=== PATIENT | female | born 1960 | race Caucasian/White ===

== ENCOUNTER 2017-04-08 09:44 | Emergency (ER) | payer OTHER ==
[~2017-04-08] VITALS: Ht 134.6 cm; Wt 82.7 kg
[~2017-04-08 09:44] MED LIST: ONDA4TAB35 PO
[2017-04-08 09:51] VITALS: Ht 134.6 cm; Wt 82.7 kg
[2017-04-08] MEDS ORDERED: ONDANSETRON 4 MG INJ IV STA (10:01)
[2017-04-08] MEDS ORDERED: SOD CHLORIDE 0.9% 1,000 ML IV STA (10:01)
[2017-04-08 10:25] LABS: ADD SCAN DIFF NO
[2017-04-08 10:29] LABS: ABNORMAL IP MESSAGE 1; BASOPHILS % 0.1 % (0.0-2.0); EOSINOPHILS # 0.1 10^3/ul (0.0-0.5); EOSINOPHILS % 0.9 % (0.0-7.0); HEMATOCRIT 42.3 % (37.0-47.0); HEMOGLOBIN 13.9 g/dl (12.0-16.0); LYMPHOCYTES # 0.6 10^3/ul (0.8-2.9); LYMPHOCYTES % 8.6 % (15.0-51.0); MEAN CORPUSCULAR HEMOGLOBIN 29.8 pg (29.0-33.0); MEAN CORPUSCULAR HGB CONC 32.9 g/dl (32.0-37.0); MEAN CORPUSCULAR VOLUME 90.6 fl (82.0-101.0); MEAN PLATELET VOLUME 9.3 fl (7.4-10.4); MONOCYTE # 0.3 10^3/ul (0.3-0.9); MONOCYTES % 4.1 % (0.0-11.0); NEUTROPHIL # 5.8 10^3/ul (1.6-7.5); PLATELET COUNT 264 10^3/UL (140-415); RED BLOOD COUNT 4.67 10^6/ul (4.20-5.40); RED CELL DISTRIBUTION WIDTH 12.7 % (11.5-14.5); WHITE BLOOD COUNT 6.8 10^3/ul (4.8-10.8)
[2017-04-08 10:38] LABS: ADD UMIC NO; URINE BILIRUBIN (Dip) NEGATIVE (NEGATIVE); URINE BLOOD (Dip) NEGATIVE (NEGATIVE); URINE COLOR LT. YELLOW (YELLOW); URINE GLUCOSE (Dip) NEGATIVE (NEGATIVE); URINE KETONES (Dip) TRACE (NEGATIVE); URINE LEUKOCYTE ESTERASE (Dip) NEGATIVE (NEGATIVE); URINE NITRITE (Dip) NEGATIVE (NEGATIVE); URINE TOTAL PROTEIN (Dip) NEGATIVE (NEGATIVE); URINE UROBILINOGEN (Dip) 0.2 E.U./dL (0.1-1.0)
[2017-04-08] MEDS ORDERED: BENA20TA48 PO (10:44)
[2017-04-08] MEDS ORDERED: DIVA500T7 PO (10:45)
[2017-04-08 10:47] VITALS: BP 118/71; PULSE 78; RESP 18
[2017-04-08] MEDS ORDERED: BUSP10TA2 PO (10:47)
[2017-04-08] MEDS ORDERED: SIMV20TA PO (10:47)
[2017-04-08] MEDS ORDERED: GLIP-95 PO (10:47)
[2017-04-08 10:48] LABS: ALBUMIN/GLOBULIN RATIO 1.25; BILIRUBIN,INDIRECT 0.8 mg/dl (0-1.1); BILIRUBIN,TOTAL 0.8 mg/dl (0.2-1.3); CALCIUM 8.6 mg/dl (8.4-10.2); CREATININE 0.64 mg/dl (0.44-1.00); TOTAL PROTEIN 7.2 g/dl (6.1-8.1)
[2017-04-08] MEDS ORDERED: MTF1000T PO (10:54)
[2017-04-08] MEDS ORDERED: PIOG30TA2 PO (10:55)
[2017-04-08] MEDS ORDERED: ONDA4TAB14 PO (11:01)
--- NOTE | 2017-04-08 13:51 | ERD ---
ER Documentation Chief Complaint Date/Time DATE: 04/08/17 TIME: 13:49 Chief Complaint N/V/D SINCE YESTERDAY MORNING. PT STARTED NEW BIPOLAR MEDICATION HPI Patient is a 57-year-old female with bipolar disorder and diabetes who presents with vomiting and diarrhea. She feels like her muscles are tight. The symptoms started at 9 AM yesterday morning. The patient said that she started a new bipolar medicine last week but she does not know the name of the medicine. She denies fevers. She has had no treatment as of yet. Upon review of old medical records this is the patient's third visit to the ER since 2012. ROS All systems reviewed and are negative except as per history of present illness. Medications Home Meds Active Scripts Ondansetron (Ondansetron Odt) 4 Mg Tab.rapdis, 4 MG PO Q6H Y for NAUSEA AND/OR VOMITING, #10 TAB Prov:TADEO JEAN MD 04/08/17 Reported Medications Pioglitazone Hcl* (Actos*) 30 Mg Tablet, 30 MG PO DAILY, #30 TAB 04/08/17 Metformin* (Glucophage*) 1,000 Mg Tablet, 1000 MG PO BID, #60 TAB 04/08/17 Buspirone Hcl* (Buspirone Hcl*) 10 Mg Tab, 10 MG PO BID, TAB 04/08/17 Glipizide* (Glipizide*) 10 Mg Tablet, 10 MG PO BID, TAB 04/08/17 Simvastatin* (Zocor*) 20 Mg Tablet, 20 MG PO QHS, #30 TAB 04/08/17 Divalproex Sodium* (Depakote*) 500 Mg Tablet.dr, 500 MG PO TID, #90 TAB 04/08/17 Benazepril Hcl* (Benazepril Hcl*) 20 Mg Tablet, 20 MG PO DAILY, #30 TAB 04/08/17 Discontinued Scripts Ondansetron Hcl* (Zofran* ODT) 4 mg -ODT Tab.disper, 4 MG PO Q6 Y for NAUSEA AND /OR VOMITING, #30 TAB Prov:TADEO JEAN MD 09/29/15 Allergies Allergies: Coded Allergies: No Known Allergy (Unverified , 09/29/15) PMhx/Soc History of Surgery: No Anesthesia Reaction: No Hx Neurological Disorder: No Hx Respiratory Disorders: No Hx Cardiac Disorders: No Hx Psychiatric Problems: Yes (BI- POLAR - OTHER UNK ) Hx Miscellaneous Medical Probl: No Hx Alcohol Use: No Hx Substance Use: No Hx Tobacco Use: No Smoking Status: Never smoker FmHx Family History: diabetes Physical Exam Vitals Vital Signs Date Time Temp Pulse Resp B/P Pulse Ox O2 Delivery O2 Flow Rate FiO2 04/08/17 10:47 78 18 118/71 98 04/08/17 09:51 98.6 89 18 126/88 98 Physical Exam Const: No acute distress Head: Atraumatic Eyes: Normal Conjunctiva ENT: Normal External Ears, Nose and Mouth. Neck: Full range of motion..~ No meningismus. Resp: Clear to auscultation bilaterally Cardio: Regular rate and rhythm, no murmurs Abd: Soft, non tender, non distended. Normal bowel sounds Skin: No petechiae or rashes Back: No midline or flank tenderness Ext: No cyanosis, or edema Neur: Awake and alert Psych: Normal Mood and Affect Result Diagram: 04/08/17 1005 04/08/17 1005 Results 24 hrs Laboratory Tests Test 04/08/17 10:05 04/08/17 10:24 White Blood Count 6.810^3/ul Red Blood Count 4.6710^6/ul Hemoglobin 13.9g/dl Hematocrit 42.3% Mean Corpuscular Volume 90.6fl Mean Corpuscular Hemoglobin 29.8pg Mean Corpuscular Hemoglobin Concent 32.9g/dl Red Cell Distribution Width 12.7% Platelet Count 80803^3/UL Mean Platelet Volume 9.3fl Neutrophils % 86.0% Lymphocytes % 8.6% Monocytes % 4.1% Eosinophils % 0.9% Basophils % 0.1% Nucleated Red Blood Cells % 0.0/100WBC Neutrophils # 5.810^3/ul Lymphocytes # 0.610^3/ul Monocytes # 0.310^3/ul Eosinophils # 0.110^3/ul Basophils # 0.010^3/ul Nucleated Red Blood Cells # 0.010^3/ul Sodium Level 135mmol/L Potassium Level 5.0mmol/L Chloride Level 102mmol/L Carbon Dioxide Level 25mmol/L Anion Gap 13 Blood Urea Nitrogen 20mg/dl Creatinine 0.64mg/dl Glucose Level 155mg/dl Calcium Level 8.6mg/dl Total Bilirubin 0.8mg/dl Direct Bilirubin 0.00mg/dl Indirect Bilirubin 0.8mg/dl Aspartate Amino Transf (AST/SGOT) 36IU/L Alanine Aminotransferase (ALT/SGPT) 18IU/L Alkaline Phosphatase 82IU/L Total Protein 7.2g/dl Albumin 4.0g/dl Globulin 3.20g/dl Albumin/Globulin Ratio 1.25 Lipase 23U/L Urine Color LT. YELLOW Urine Clarity CLEAR Urine pH 6.0 Urine Specific [place] 1.020 Urine Ketones TRACE Urine Nitrite NEGATIVE Urine Bilirubin NEGATIVE Urine Urobilinogen 0.2 E.U./dL Urine Leukocyte Esterase NEGATIVE Urine Hemoglobin NEGATIVE Urine Glucose NEGATIVE% Urine Total Protein NEGATIVE Current Medications Medications (Trade) Dose Ordered Sig/Rekha Route PRN Reason Start Time Stop Time Status Last Admin Dose Admin Sodium Chloride (NS) 1,000 ml @ 1,000 mls/hr Q1H STAT IV 04/08/17 10:01 04/08/17 11:00 DC 04/08/17 10:25 Ondansetron HCl (Zofran Inj) 4 mg ONCE STAT IV 04/08/17 10:01 04/08/17 10:02 DC 04/08/17 10:25 Procedures/MDM Patient is a 57-year-old female presents with vomiting and diarrhea. Her laboratory studies are normal. I believe this is most likely a viral illness. I told her that she should continue take her bipolar medicine as directed. She will need to follow-up closely with her primary doctor within 24-48 hours. She can return sooner for any worsening symptoms. The patient understands the plan is okay for discharge at this time. She was given Zofran. She will be given a prescription for Zofran for her symptoms. Departure Diagnosis: Primary Impression: Vomiting and diarrhea Condition: Fair Patient Instructions: Self-Care for Vomiting and Diarrhea Referrals: Your doctor Additional Instructions: Call your primary care doctor TOMORROW for an appointment during the next 1-2 days.See the doctor sooner or return here if your condition worsens before your appointment time. TADEO JEAN MD April 08, 2017 13:51
== END 2017-04-08 11:13 | disposition home or self-care (01) ==
LOC: E/R 09:44
DX: R11.10 Vomiting, unspecified (principal); R19.7 Diarrhea, unspecified; E11.9 Type 2 diabetes mellitus without complications; Z79.84 Long term (current) use of oral hypoglycemic drugs
CPT/HCPCS: 36415; 80053; 81003; 83690; 85025; 96374; J2405; J7030; Z7502